=== PATIENT | female | born 1950 | race Caucasian/White ===

== ENCOUNTER 2017-09-09 14:37 | Inpatient (IN) | payer MEDICARE ==
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
[2017-09-09] MEDS ORDERED: IPRATROPIUM/ALBUTEROL 3 ML NEB INH STA (15:38)
[2017-09-09] MEDS ORDERED: CIPROFLOXACIN 250 MG TABLET PO STA (15:39)
[2017-09-09 16:15] LABS: BASOPHILS # (AUTO) 0.2 10^3/uL (0.0-0.1); BASOPHILS % (AUTO) 0.9 %; EOSINOPHILS % (AUTO) 0.1 %; HGB - HEMOGLOBIN 13.1 g/dL (12.0-16.0); LYMPHOCYTES # (AUTO) 0.4 10^3/uL (1.5-3.5); LYMPHOCYTES % (AUTO) 2.4 %; MEAN CORPUSCULAR HEMOGLOBIN 28.5 pg (27.0-31.0); MEAN CORPUSCULAR HGB CONC 32.8 g/dL (32.0-36.0); MEAN CORPUSCULAR VOLUME 86.9 fL (81.0-99.0); MEAN PLATELET VOLUME 7.7 fL (7.9-10.8); MONOCYTES # (AUTO) 1.3 10^3/uL (0.0-1.0); MONOCYTES % (AUTO) 7.2 %; NEUTROPHILS % (AUTO) 89.4 %; PLT - PLATELET COUNT 325 10^3/uL (130-450); RED BLOOD COUNT 4.59 10^6/uL (4.20-5.40); RED CELL DISTRIBUTION WIDTH 14.4 % (12.0-15.0); WHITE BLOOD COUNT 17.8 x10^3/uL (4.8-10.8)
[2017-09-09] MEDS ORDERED: CIPROFLOXACIN 400 MG/200 ML 200 ML IV ONE (16:24)
[2017-09-09 16:31] LABS: ALBUMIN 3.7 g/dL (3.2-5.5); ALBUMIN/GLOBULIN RATIO 0.9 (1.0-2.2); BILIRUBIN,TOTAL 1.4 mg/dL (0.2-1.0); CALCIUM 8.9 mg/dL (8.5-10.3); CREATININE 0.7 mg/dL (0.4-1.0); MAGNESIUM 1.7 mg/dL (1.7-2.8); TOTAL PROTEIN 7.8 g/dL (6.7-8.2)
--- NOTE | 2017-09-09 16:41 | XRAY Report ---
EXAM: CHEST RADIOGRAPHY EXAM DATE: 09/09/2017 04:35 PM. CLINICAL HISTORY: Shortness of breath. Chest pain, left-sided. COMPARISON: None. TECHNIQUE: 2 views. FINDINGS: Lungs/Pleura: Diffuse interstitial and vascular prominence and bronchial thickening present largely i n the mid and lower lungs. Dense left basilar opacity. Small left pleural effusion. No pneumothorax. Mediastinum: Cardiomegaly. Aortic atherosclerosis. Other: Degenerative changes. Dextroscoliosis. Status post cholecystectomy. Surgical clips projected o kenzie the right lung apex and superior mediastinum. IMPRESSION: 1. Diffuse interstitial and vascular prominence and bronchial thickening mid and lower lungs which ma y be infectious in etiology and represent multilobar consolidation or represent edema. 2. Small left pleural effusion. 3. Cardiomegaly. [facility] Referring Provider Line: [phone] SITE ID: [id number]
[2017-09-09] MEDS ORDERED: HYDROmorphone 1 MG/ML SYRINGE IVP STA (18:02)
[2017-09-09] MEDS ORDERED: PROMETHAZINE INJ 25 MG in SODIUM CHLORIDE 0.9% 50 ML IV STA (18:02)
[2017-09-09] MEDS ORDERED: ALBUTEROL NEB 2.5 MG/3 ML INH STA (18:04)
[2017-09-09] MEDS ORDERED: HYDROcod/ACETAM 10 MG/325 MG TABLET PO PRN (18:34)
[2017-09-09] MEDS ORDERED: amLODIPine 5 MG TABLET PO STA (18:36)
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
[2017-09-09] MEDS ORDERED: METOPROLOL SUCCINATE 50 MG TABLET PO SCH (19:00)
[2017-09-09] MEDS ORDERED: levoFLOXacin 750 MG/150 ML 750 MG/150 ML BAG IV SCH (19:00)
[2017-09-09] MEDS ORDERED: PROMETHAZINE 25 MG TABLET PO PRN (20:07)
[2017-09-09] MEDS: SODIUM CHLORIDE FLUSH 0.9% 10 ML SYRINGE IVP PRN (20:34)
[2017-09-09] MEDS: D5.45NS W/20 MEQ KCL 1,000 ML IV SCH (20:34)
[2017-09-09] MEDS ORDERED: PROMETHAZINE 25 MG TABLET PO SCH (21:00)
[2017-09-09] MEDS ORDERED: metFORMIN 500 MG TABLET PO SCH (21:00)
[2017-09-09] MEDS ORDERED: INSULIN ASPART 300 UNIT/3 ML PEN SUBQ SCH (21:00)
[2017-09-09] MEDS ORDERED: HYDROmorphone 1 MG/ML SYRINGE IVP PRN (21:08)
[2017-09-09] MEDS ORDERED: LIDOCAINE VISCOUS 2% 100 ML BOTTLE MM PRN (21:10)
[2017-09-09] MEDS: ACETAMINOPHEN 1,000 MG/100 ML 100 ML IV PRN (21:50)
[2017-09-09] MEDS: cefTRIAXone 2 GM in SODIUM CHLORIDE 0.9% MINIBAG 100 ML IV SCH (21:56)
[2017-09-09] MEDS: IPRATROPIUM/ALBUTEROL 3 ML NEB INH PRN (22:01)
[2017-09-09] MEDS: BUDESONIDE 0.5 MG/2 ML NEB INH SCH (22:01)
[2017-09-09] MEDS: FUROSEMIDE 20 MG/2 ML VIAL IVP SCH (22:10)
[2017-09-09] MEDS ORDERED: diazePAM INJ 5 MG/ML SYRINGE IVP PRN (22:24)
[2017-09-09] MEDS ORDERED: PROMETHAZINE 25 MG/1 ML VIAL ONE (22:48)
[2017-09-09] MEDS: PANTOPRAZOLE 40 MG VIAL IVP SCH (23:00)
[2017-09-09] MEDS: HYDROmorphone 1 MG/ML SYRINGE IVP PRN (23:00)
[2017-09-09] MEDS: SODIUM CHLORIDE FLUSH 0.9% 10 ML SYRINGE IVP SCH (23:01)
[2017-09-09] MEDS: PROMETHAZINE INJ 25 MG in SODIUM CHLORIDE 0.9% 50 ML IV PRN (23:03)
[2017-09-09] MEDS ORDERED: SODIUM CHLORIDE 0.9% MINIBAG 100 ML IV ONE (23:09)
[2017-09-09] MEDS: METOPROLOL 5 MG/5 ML VIAL IVP SCH (23:24)
[2017-09-10] MEDS: INSULIN REGULAR HUMAN 100 UNIT/1 ML 10 ML MDV SUBQ SCH ×4 (00:34→18:01)
[2017-09-10] MEDS: METOPROLOL 5 MG/5 ML VIAL IVP SCH ×5 (00:38→23:57)
[2017-09-10] MEDS: AZITHROMYCIN INJ 500 MG in SODIUM CHLORIDE 0.9% 250 ML IV SCH ×2 (00:40→22:23)
[2017-09-10] MEDS ORDERED: PROMETHAZINE 25 MG/1 ML VIAL ONE (05:19)
[2017-09-10] MEDS: PROMETHAZINE INJ 25 MG in SODIUM CHLORIDE 0.9% 50 ML IV PRN ×3 (05:22→17:53)
[2017-09-10] MEDS ORDERED: SODIUM CHLORIDE INHALATION 3 ML NEB ONE ×4 (05:28→19:10)
[2017-09-10] MEDS: HYDROmorphone 1 MG/ML SYRINGE IVP PRN ×3 (05:28→17:54)
[2017-09-10] MEDS: PANTOPRAZOLE 40 MG VIAL IVP SCH (06:46)
[2017-09-10] MEDS: SODIUM CHLORIDE FLUSH 0.9% 10 ML SYRINGE IVP PRN ×3 (06:47→19:10)
[2017-09-10] MEDS: BUDESONIDE 0.5 MG/2 ML NEB INH SCH ×2 (07:20→19:53)
[2017-09-10] MEDS: IPRATROPIUM/ALBUTEROL 3 ML NEB INH PRN ×3 (07:20→19:53)
[2017-09-10] MEDS: FUROSEMIDE 20 MG/2 ML VIAL IVP SCH (08:23)
[2017-09-10] MEDS: amLODIPine 5 MG TABLET PO SCH (08:23)
[2017-09-10] MEDS: SODIUM CHLORIDE FLUSH 0.9% 10 ML SYRINGE IVP SCH ×3 (08:24→23:58)
[2017-09-10] MEDS ORDERED: POLYETHYLENE GLYCOL 3350 17 GM PACKET PO SCH (09:00)
[2017-09-10] MEDS ORDERED: FUROSEMIDE 20 MG TABLET PO SCH (09:00)
[2017-09-10] MEDS ORDERED: PANTOPRAZOLE 40 MG TABLET PO SCH (09:00)
[2017-09-10 09:22] LABS: CALCIUM 8.3 mg/dL (8.5-10.3); CREATININE 0.7 mg/dL (0.4-1.0)
[2017-09-10 09:33] LABS: HGB - HEMOGLOBIN 12.5 g/dL (12.0-16.0); MEAN CORPUSCULAR HGB CONC 32.9 g/dL (32.0-36.0); MEAN CORPUSCULAR VOLUME 88.1 fL (81.0-99.0); MEAN PLATELET VOLUME 8.1 fL (7.9-10.8); RED BLOOD COUNT 4.29 10^6/uL (4.20-5.40); RED CELL DISTRIBUTION WIDTH 14.6 % (12.0-15.0); WHITE BLOOD COUNT 15.9 x10^3/uL (4.8-10.8)
[2017-09-10] MEDS: D5.45NS W/20 MEQ KCL 1,000 ML IV SCH ×2 (10:49→20:07)
[2017-09-10] MEDS ORDERED: SODIUM CHLORIDE INHALATION 3 ML NEB INH PRN (12:29)
--- NOTE | 2017-09-10 14:36 | PROVIDER PROGRESS NOTE ---
Subjective - Prog Note Date Prog Note Date: 09/10/17 Prog Note Time: 14:15 - Subjective Pt reports feeling: Improved (The patient says that she is feeling a little bit easier to breathe. She denies any new problems. She says she slept fairly well last night. She is eating and has not yet moved her bowels since she has been hospitalized. She denies any significant shortness of breath but does have a nonproductive cough.) Current Medications - Current Medications Current Medications: Amlodipine, [place] azithromycin, Pulmicort, ceftriaxone, D5 one half normal saline , diazepam, furosemide, hydromorphone, insulin, DuoNeb, viscous lidocaine, metoprolol, acetaminophen, Protonix, Phenergan, Sodium chloride. Objective - Vital Signs/Intake & Output Reviewed Vital Signs: Yes Vital Signs: Vital Signs x48h Temp Pulse Pulse Resp BP BP Pulse Ox 09/10/17 13:34 141/46 H 09/10/17 13:27 38.6 C H 109 H 141/46 H 87 L 09/10/17 11:21 88 20 09/10/17 09:02 36.8 C 93 16 156/65 H 93 09/10/17 07:50 115 H 191/69 H 09/10/17 07:35 103 H 133/94 H 09/10/17 07:23 90 20 09/10/17 07:20 94 160/69 H 09/10/17 07:05 87 136/57 H 09/10/17 07:00 86 146/65 H 09/10/17 06:57 88 145/63 H 09/10/17 06:50 153/76 H Intake & Output: Intake & Output 09/07/17 09/08/17 09/09/17 09/10/17 23:59 23:59 23:59 23:59 Intake Total 251 1503.000 Output Total 50 Balance 251 1453.000 - Objective General Appearance: positive: No acute distress, Alert Eyes Bilateral: positive: Normal inspection, PERRL, EOMI, No lid inflammation, Conjunctivae nml ENT: positive: Other (s/p tracheostomy) Neck: positive: Nml inspection, No JVD, Trachea midline. negative: Thyroid nml , Thyromegaly Respiratory: positive: Chest non-tender, No respiratory distress, Breath sounds nml, Rhonchi. negative: Wheezes, Rales Cardiovascular: positive: Regular rate & rhythm, No murmur, No gallop Abdomen: positive: Non-tender, No organomegaly, Nml bowel sounds, No distention. negative: Guarding, Rebound Back: positive: Nml inspection. negative: CVA tenderness (R), CVA tenderness (L ) Skin: positive: Color nml, No rash, Warm, Dry. negative: Cyanosis Extremities: positive: Non-tender, Full ROM, Nml appearance, No pedal edema Neurologic/Psychiatric: positive: Oriented x3, CN's nml (2-12), Motor nml, Sensation nml, Mood/affect nml - Lab Results Fish Bones: 09/10/17 08:47 09/10/17 08:47 Other Labs: Lab Results x24hrs 09/10/17 09/10/17 09/10/17 Range/Units 11:44 08:47 08:47 WBC 15.9 H (4.8-10.8) x10^3/uL RBC 4.29 (4.20-5.40) 10^6/uL Hgb 12.5 (12.0-16.0) g/dL Hct 37.8 (37.0-47.0) % MCV 88.1 (81.0-99.0) fL MCH 29.0 (27.0-31.0) pg MCHC 32.9 (32.0-36.0) g/dL RDW 14.6 (12.0-15.0) % Plt Count 289 (130-450) 10^3/uL MPV 8.1 (7.9-10.8) fL Sodium 138 (135-145) mmol/L Potassium 3.4 L (3.5-5.0) mmol/L Chloride 100 L (101-111) mmol/L Carbon Dioxide 27 (21-32) mmol/L Anion Gap 11.0 (6-13) BUN 17 (6-20) mg/dL Creatinine 0.7 (0.4-1.0) mg/dL Estimated GFR (MDRD) 83 L (>89) Glucose 194 H (70-100) mg/dL POC Whole Bld Glucose 210 H (70 - 100) mg/dL Calcium 8.3 L (8.5-10.3) mg/dL 09/10/17 09/10/17 Range/Units 05:40 00:26 WBC (4.8-10.8) x10^3/uL RBC (4.20-5.40) 10^6/uL Hgb (12.0-16.0) g/dL Hct (37.0-47.0) % MCV (81.0-99.0) fL MCH (27.0-31.0) pg MCHC (32.0-36.0) g/dL RDW (12.0-15.0) % Plt Count (130-450) 10^3/uL MPV (7.9-10.8) fL Sodium (135-145) mmol/L Potassium (3.5-5.0) mmol/L Chloride (101-111) mmol/L Carbon Dioxide (21-32) mmol/L Anion Gap (6-13) BUN (6-20) mg/dL Creatinine (0.4-1.0) mg/dL Estimated GFR (MDRD) (>89) Glucose (70-100) mg/dL POC Whole Bld Glucose 148 H 157 H (70 - 100) mg/dL Calcium (8.5-10.3) mg/dL - Diagnostic Imaging Diagnostic Imaging Results: positive: Final report reviewed Diagnostic Imaging Comments: EXAM: CHEST RADIOGRAPHY EXAM DATE: 09/09/2017 04:35 PM. CLINICAL HISTORY: Shortness of breath. Chest pain, left-sided. COMPARISON: None. TECHNIQUE: 2 views. FINDINGS: Lungs/Pleura: Diffuse interstitial and vascular prominence and bronchial thickening present largely in the mid and lower lungs. Dense left basilar opacity. Small left pleural effusion. No pneumothorax. Mediastinum: Cardiomegaly. Aortic atherosclerosis. Other: Degenerative changes. Dextroscoliosis. Status post cholecystectomy. Surgical clips projected over the right lung apex and superior mediastinum. IMPRESSION: 1. Diffuse interstitial and vascular prominence and bronchial thickening mid and lower lungs which may be infectious in etiology and represent multilobar consolidation or represent edema. 2. Small left pleural effusion. 3. Cardiomegaly Assessment/Plan - Problem List (1) Pneumonia Impression: Community-acquired, the patient is on ceftriaxone and azithromycin. Due to her previous living conditions there is certainly a high risk that the patient may have some sort of mold infection in her lungs as well. The patient will continue on her supplemental oxygen and bronchodilators as necessary. Qualifiers: Pneumonia type: due to unspecified organism Laterality: right Lung location: lower lobe of lung Qualified Code(s): J18.1 - Lobar pneumonia, unspecified organism (2) Acute exacerbation of COPD with asthma Impression: This exacerbation was likely triggered by the pneumonia. We will continue to treat the underlying pneumonia and give her bronchodilators and steroids to help with the COPD exacerbation. (3) HTN (hypertension) Impression: Controlled. Continue metoprolol, amlodipine, and Lasix. (4) Anxiety Impression: Controlled, continue home medications. (5) Type 2 diabetes mellitus Impression: The patient is on diabetic diet. We will continue with metformin and sliding scale insulin coverage.
[2017-09-10] MEDS: ACETAMINOPHEN 1,000 MG/100 ML 100 ML IV PRN (18:50)
[2017-09-10] MEDS: cefTRIAXone 2 GM in SODIUM CHLORIDE 0.9% MINIBAG 100 ML IV SCH (21:47)
[2017-09-11] MEDS: HYDROmorphone 1 MG/ML SYRINGE IVP PRN ×4 (00:43→18:30)
[2017-09-11] MEDS: PROMETHAZINE INJ 25 MG in SODIUM CHLORIDE 0.9% 50 ML IV PRN ×4 (00:50→20:11)
[2017-09-11] MEDS: SODIUM CHLORIDE FLUSH 0.9% 10 ML SYRINGE IVP PRN ×3 (00:50→08:12)
[2017-09-11] MEDS: INSULIN REGULAR HUMAN 100 UNIT/1 ML 10 ML MDV SUBQ SCH ×2 (00:57→06:36)
[2017-09-11 06:04] LABS: HGB - HEMOGLOBIN 11.7 g/dL (12.0-16.0); MEAN CORPUSCULAR HEMOGLOBIN 28.4 pg (27.0-31.0); MEAN CORPUSCULAR HGB CONC 32.3 g/dL (32.0-36.0); MEAN CORPUSCULAR VOLUME 87.7 fL (81.0-99.0); RED BLOOD COUNT 4.13 10^6/uL (4.20-5.40); RED CELL DISTRIBUTION WIDTH 14.2 % (12.0-15.0); WHITE BLOOD COUNT 11.7 x10^3/uL (4.8-10.8)
[2017-09-11 06:21] LABS: CREATININE 0.7 mg/dL (0.4-1.0)
[2017-09-11] MEDS: METOPROLOL 5 MG/5 ML VIAL IVP SCH (06:24)
[2017-09-11] MEDS: PANTOPRAZOLE 40 MG VIAL IVP SCH (07:12)
[2017-09-11] MEDS: BUDESONIDE 0.5 MG/2 ML NEB INH SCH ×2 (08:00→21:12)
[2017-09-11] MEDS: IPRATROPIUM/ALBUTEROL 3 ML NEB INH PRN ×2 (08:00→21:13)
[2017-09-11] MEDS: D5.45NS W/20 MEQ KCL 1,000 ML IV SCH ×3 (08:11→21:54)
--- NOTE | 2017-09-11 09:58 | XRAY Report ---
FRONTAL CHEST: 09/11/2017 CLINICAL INDICATION: Pneumonia, worsening shortness of breath. COMPARISON: 09/09/2016. FINDINGS: Frontal view of the chest demonstrates interval increase in left-sided infiltrates. Trace left effusion is present. No pneumothorax. IMPRESSION: INTERVAL INCREASE IN LEFT-SIDED INFILTRATES. TD: 09/11/2017 09:57
[2017-09-11] MEDS: SODIUM CHLORIDE FLUSH 0.9% 10 ML SYRINGE IVP SCH ×2 (11:29→17:10)
[2017-09-11] MEDS: amLODIPine 5 MG TABLET PO SCH (11:29)
[2017-09-11] MEDS: FUROSEMIDE 20 MG/2 ML VIAL IVP SCH (11:29)
[2017-09-11] MEDS: INSULIN ASPART 300 UNIT/3 ML PEN SUBQ SCH ×3 (12:18→21:55)
[2017-09-11 12:27] LABS: HB2 TOTAL 13.1 g/dL; HEMOGLOBIN A1C 0.64 g/dL; HEMOGLOBIN A1C % 6.6 % (4.6-6.2)
--- NOTE | 2017-09-11 14:33 | PROVIDER PROGRESS NOTE ---
Subjective - Prog Note Date Prog Note Date: 09/11/17 Prog Note Time: 11:30 - Subjective Pt reports feeling: No change (Pt still with SOB and chronic pain.) Objective - Vital Signs/Intake & Output Vital Signs: Vital Signs x48h Temp Pulse Pulse Resp BP Pulse Ox 09/11/17 14:23 36.9 C 105 H 18 173/71 H 96 09/11/17 08:00 37.2 C 88 90 20 164/66 H 91 L 09/11/17 06:55 88 161/64 H 09/11/17 06:50 90 158/86 H 09/11/17 06:45 95 165/83 H Intake & Output: Intake & Output 09/08/17 09/09/17 09/10/17 09/11/17 23:59 23:59 23:59 23:59 Intake Total 251 2934.000 1184.667 Output Total 75 1350 Balance 251 2859.000 -165.333 - Lab Results Fish Bones: 09/11/17 05:47 09/11/17 05:47 Other Labs: Lab Results x24hrs 09/11/17 09/11/17 09/11/17 Range/Units 11:32 06:06 05:47 WBC (4.8-10.8) x10^3/uL RBC (4.20-5.40) 10^6/uL Hgb (12.0-16.0) g/dL Hct (37.0-47.0) % MCV (81.0-99.0) fL MCH (27.0-31.0) pg MCHC (32.0-36.0) g/dL RDW (12.0-15.0) % Plt Count (130-450) 10^3/uL MPV (7.9-10.8) fL Sodium (135-145) mmol/L Potassium (3.5-5.0) mmol/L Chloride (101-111) mmol/L Carbon Dioxide (21-32) mmol/L Anion Gap (6-13) BUN (6-20) mg/dL Creatinine (0.4-1.0) mg/dL Estimated GFR (MDRD) (>89) Glucose (70-100) mg/dL POC Whole Bld Glucose 125 H 146 H (70 - 100) mg/dL Glycated Hemoglobin 6.6 H (4.6-6.2) % Estim Average Glucose 143 H (70-100) Calcium (8.5-10.3) mg/dL 09/11/17 09/11/17 09/10/17 Range/Units 05:47 05:47 23:51 WBC 11.7 H (4.8-10.8) x10^3/uL RBC 4.13 L (4.20-5.40) 10^6/uL Hgb 11.7 L (12.0-16.0) g/dL Hct 36.2 L (37.0-47.0) % MCV 87.7 (81.0-99.0) fL MCH 28.4 (27.0-31.0) pg MCHC 32.3 (32.0-36.0) g/dL RDW 14.2 (12.0-15.0) % Plt Count 269 (130-450) 10^3/uL MPV 8.0 (7.9-10.8) fL Sodium 138 (135-145) mmol/L Potassium 3.6 (3.5-5.0) mmol/L Chloride 104 (101-111) mmol/L Carbon Dioxide 26 (21-32) mmol/L Anion Gap 8.0 (6-13) BUN 12 (6-20) mg/dL Creatinine 0.7 (0.4-1.0) mg/dL Estimated GFR (MDRD) 83 L (>89) Glucose 161 H (70-100) mg/dL POC Whole Bld Glucose 116 H (70 - 100) mg/dL Glycated Hemoglobin (4.6-6.2) % Estim Average Glucose (70-100) Calcium 8.0 L (8.5-10.3) mg/dL 09/10/17 Range/Units 17:26 WBC (4.8-10.8) x10^3/uL RBC (4.20-5.40) 10^6/uL Hgb (12.0-16.0) g/dL Hct (37.0-47.0) % MCV (81.0-99.0) fL MCH (27.0-31.0) pg MCHC (32.0-36.0) g/dL RDW (12.0-15.0) % Plt Count (130-450) 10^3/uL MPV (7.9-10.8) fL Sodium (135-145) mmol/L Potassium (3.5-5.0) mmol/L Chloride (101-111) mmol/L Carbon Dioxide (21-32) mmol/L Anion Gap (6-13) BUN (6-20) mg/dL Creatinine (0.4-1.0) mg/dL Estimated GFR (MDRD) (>89) Glucose (70-100) mg/dL POC Whole Bld Glucose 168 H (70 - 100) mg/dL Glycated Hemoglobin (4.6-6.2) % Estim Average Glucose (70-100) Calcium (8.5-10.3) mg/dL Assessment/Plan - Problem List (1) Pneumonia Impression: Worsening infiltrates on the left, pt still with respiratory compromise. WBCs trending downwards rapidly. Continue rocephin and azithromycin, bronchodilators and supplemental oxygen. Qualifiers: Pneumonia type: due to unspecified organism Laterality: left Lung location: lower lobe of lung Qualified Code(s): J18.1 - Lobar pneumonia, unspecified organism (2) Acute exacerbation of COPD with asthma Impression: No doubt due to the underlying pneumonia. Continue with nebulizer treatments, bronchodilators, supplemental oxygen, and steroids. (3) HTN (hypertension) Impression: Patient is already on amlodipine metoprolol and Lasix. Blood pressure still elevated. We will add hydrochlorothiazide and lisinopril. (4) Anxiety Impression: Continue PRN diazepam. (5) Type 2 diabetes mellitus Impression: Continue with diabetic diet, home medications, and sliding scale coverage. (6) Chronic pain Impression: Patient complains of chronic pain to her jaw, shoulders, hips, and lower back. She has been taking hydrocodone/acetaminophen 4 times a day for years. She still complains of pain that is severe. I will add low-dose methadone.
[2017-09-11] MEDS: LISINOPRIL 20 MG TABLET PO SCH (16:12)
[2017-09-11] MEDS: METHADONE 5 MG TABLET PO SCH ×2 (16:12→21:51)
[2017-09-11] MEDS: hydroCHLOROthiazide 25 MG TABLET PO SCH (16:13)
[2017-09-11] MEDS ORDERED: SODIUM CHLORIDE INHALATION 3 ML NEB ONE (16:43)
[2017-09-11] MEDS: ACETAMINOPHEN 1,000 MG/100 ML 100 ML IV PRN (18:30)
[2017-09-11] MEDS: AZITHROMYCIN INJ 500 MG in SODIUM CHLORIDE 0.9% 250 ML IV SCH (21:49)
[2017-09-11] MEDS: cefTRIAXone 2 GM in SODIUM CHLORIDE 0.9% MINIBAG 100 ML IV SCH (21:49)
[2017-09-12] MEDS: HYDROmorphone 1 MG/ML SYRINGE IVP PRN ×4 (02:09→19:54)
[2017-09-12] MEDS: PROMETHAZINE INJ 25 MG in SODIUM CHLORIDE 0.9% 50 ML IV PRN ×4 (02:12→19:58)
[2017-09-12] MEDS ORDERED: MAG HYDROX/AL HYDROX/SIMETH 30 ML UDC PO PRN (02:40)
[2017-09-12] MEDS: SODIUM CHLORIDE FLUSH 0.9% 10 ML SYRINGE IVP SCH ×4 (02:53→23:46)
[2017-09-12] MEDS: METHADONE 5 MG TABLET PO SCH ×3 (05:53→21:07)
[2017-09-12] MEDS: SODIUM CHLORIDE FLUSH 0.9% 10 ML SYRINGE IVP PRN (06:03)
[2017-09-12] MEDS: PANTOPRAZOLE 40 MG VIAL IVP SCH (06:03)
[2017-09-12 06:12] LABS: HGB - HEMOGLOBIN 11.4 g/dL (12.0-16.0); MEAN CORPUSCULAR HGB CONC 33.1 g/dL (32.0-36.0); MEAN CORPUSCULAR VOLUME 87.5 fL (81.0-99.0); MEAN PLATELET VOLUME 7.9 fL (7.9-10.8); RED BLOOD COUNT 3.93 10^6/uL (4.20-5.40); RED CELL DISTRIBUTION WIDTH 14.1 % (12.0-15.0); WHITE BLOOD COUNT 7.1 x10^3/uL (4.8-10.8)
[2017-09-12 06:13] LABS: CREATININE 0.6 mg/dL (0.4-1.0)
[2017-09-12] MEDS: D5.45NS W/20 MEQ KCL 1,000 ML IV SCH ×2 (08:13→14:31)
[2017-09-12] MEDS: FUROSEMIDE 20 MG/2 ML VIAL IVP SCH (08:14)
[2017-09-12] MEDS: ACETAMINOPHEN 1,000 MG/100 ML 100 ML IV PRN ×2 (08:16→19:36)
[2017-09-12] MEDS: INSULIN ASPART 300 UNIT/3 ML PEN SUBQ SCH ×4 (08:21→20:48)
[2017-09-12] MEDS: LISINOPRIL 20 MG TABLET PO SCH (08:38)
[2017-09-12] MEDS: amLODIPine 5 MG TABLET PO SCH (08:38)
[2017-09-12] MEDS: hydroCHLOROthiazide 25 MG TABLET PO SCH (08:38)
[2017-09-12] MEDS: METOPROLOL TARTRATE 25 MG TABLET PO SCH ×2 (08:39→21:04)
[2017-09-12] MEDS ORDERED: METOPROLOL SUCCINATE 50 MG TABLET PO SCH (09:00)
[2017-09-12] MEDS: BUDESONIDE 0.5 MG/2 ML NEB INH SCH ×2 (11:00→22:20)
[2017-09-12] MEDS: IPRATROPIUM/ALBUTEROL 3 ML NEB INH PRN (11:00)
--- NOTE | 2017-09-12 13:52 | PROVIDER PROGRESS NOTE ---
Assessment/Plan - Problem List (1) Pneumonia Qualifiers: Pneumonia type: due to unspecified organism Laterality: left Lung location: lower lobe of lung Qualified Code(s): J18.1 - Lobar pneumonia, unspecified organism Assessment/Plan: Pt states she is less SOB and is coughing less. Continue iv antibiotics. (2) Acute exacerbation of COPD with asthma Assessment/Plan: No wheezing or rhonchi. Will continue present nebs and treatment. (3) Tracheostomy dependent Assessment/Plan: I spoke to Dr Renetta Sahu, General Surgery, to address if Pt needs a bronch and to assist with the issue of the broken Trach. The ER notes do state what type of Trach the patient has and what was done up until today. We do not have a bronchoscope here and he does not insert the Joey (speaking type) of Trachs. Continue with current apparatus, as she is improving clinically, and she will need ENT to help with this after DCh. (4) HTN (hypertension) Assessment/Plan: Stable on current meds (5) Type 2 diabetes mellitus Assessment/Plan: Continue with DM diet and Insulin coverage. (6) Anxiety Assessment/Plan: Continue current meds. (7) Chronic pain Assessment/Plan: Continue with new Methadone, added to narcotics prn. (8) Hypokalemia Assessment/Plan: Possibly from loop diuretic. Will replace K and follow labs. - Current Meds Current Meds: Current Medications Generic Name Dose Route Start Last Admin Trade Name Freq PRN Reason Stop Dose Admin Albuterol/Ipratropium 3 ml 09/09/17 19:15 09/12/17 11:00 Duoneb INH 3 ml Q4HR PRN Administration Wheezing Amlodipine Besylate 5 mg 09/10/17 09:00 09/12/17 08:38 Norvasc PO 5 mg DAILY DARLENE Administration Budesonide 0.5 mg 09/09/17 20:00 09/12/17 11:00 Pulmicort INH 0.5 mg RTBID DARLENE Administration Furosemide 20 mg 09/09/17 22:00 09/12/17 08:14 Lasix Inj 20mg Vial IVP 20 mg DAILY DARLENE Administration Hydrochlorothiazide 25 mg 09/11/17 15:00 09/12/17 08:38 Hydrodiuril PO 25 mg DAILY DARLENE Administration Hydromorphone HCl 0.5 mg 09/09/17 22:25 09/12/17 08:14 Dilaudid Inj Syringe IVP 0.5 mg Q6H PRN Administration SEVERE PAIN Potassium Chloride/Dextrose/Sod Cl 1,000 mls @ 100 mls/hr 09/09/17 19:00 09:06 D5.45ns W/20 Meq Kcl IV 100 mls/hr .Q10H DARLENE Infusion Azithromycin 500 mg/ Sodium 250 mls @ 250 mls/hr 09/09/17 22:00 09/11/17 22: 54 Chloride IV Infused Q24H DARLENE Infusion Ceftriaxone Sodium 2 gm/ 100 mls @ 200 mls/hr 09/09/17 22:00 09/11/17 22:20 Sodium Chloride IV Infused Q24H DARLENE Infusion Acetaminophen 100 mls @ 400 mls/hr 09/09/17 21:10 09/12/17 08:35 Ofirmev IV Infused Q6HR PRN Infusion PAIN Promethazine HCl 25 mg/ Sodium 51 mls @ 100 mls/hr 09/09/17 22:22 09/12/17 09 :06 Chloride IV Infused Q6H PRN Infusion Nausea / Vomiting Insulin Aspart 3 - 11 unit 09/12/17 12:00 09/12/17 12:08 Novolog SUBQ 3 unit 0800,1200,1700,2100 DARLENE Administration Protocol Lisinopril 20 mg 09/11/17 15:00 09/12/17 08:38 Zestril PO 20 mg DAILY DARLENE Administration Methadone HCl 2.5 mg 09/11/17 15:00 09/12/17 05:53 PO 2.5 mg TID DARLENE Administration Metoprolol Tartrate 25 mg 09/12/17 09:00 09/12/17 08:39 Lopressor PO 25 mg BID DARLENE Administration Pantoprazole Sodium 40 mg 09/09/17 22:00 09/12/17 06:03 Protonix IVP 40 mg QDAC DARLENE Administration Sodium Chloride 10 ml 09/09/17 18:28 09/12/17 06:03 Normal Saline Flush 0.9% IVP 10 ml PRN PRN Administration NEEDED PER PROVIDER ORDERS Sodium Chloride 10 ml 09/10/17 01:00 09/12/17 08:38 Normal Saline Flush 0.9% IVP Not Given 0100,0900,1700 DARLENE - Lab Result Fish Bone Diagrams: 09/12/17 05:35 09/12/17 05:35 - Additional Planning My Orders: My Active Orders 09/12/17 Consult [General Surgery Consult] [CONS] Routine 09/12/17 09:00 Metoprolol Tartrate [Lopressor] 25 mg PO BID 09/12/17 Lunch Soft Mechanical Diet [DIET] Subjective - Subjective Patient Reports: Feeling Better Nursing Reports: Other (Has pain in neck, shoulders and chest, narcotocs with Methadone do help.) Objective Vital Signs: Vital Signs - 24 hr 09/11/17 09/11/17 09/12/17 14:23 16:53 01:30 Temperature 36.9 C 37 C 36.7 C Heart Rate Heart Rate [ 105 H 113 H 98 Brachial] Respiratory 18 20 18 Rate Blood Pressure 158/76 H [Left Brachial artery] Blood Pressure 173/71 H 147/79 H [Right Brachial artery] O2 Saturation 96 94 98 09/12/17 09/12/17 08:00 11:00 Temperature 36.7 C Heart Rate 71 Heart Rate [ 87 Brachial] Respiratory 16 20 Rate Blood Pressure 135/66 H [Left Brachial artery] Blood Pressure [Right Brachial artery] O2 Saturation 91 L Oxygen O2 Source High flow nasal cannula I&O (Last 24 Hrs): Intake and Output Totals x24h 09/10/17 09/11/17 09/12/17 23:59 23:59 23:59 Intake Total 2934.000 2744.000 1335.333 Output Total 75 1950 2300 Balance 2859.000 794.000 -964.667 General: Alert HEENT: Mucous membr. moist/pink Neck: Other (Trach in neck and S/P extensive neck surgery.) Neuro: Non Focal Cardiovascular: No murmurs Respiratory: Other Extremities: Other (1+ edema) - Results Results: Laboratory Results WBC 7.1 x10^3/uL (4.8-10.8) 09/12/17 05:35 RBC 3.93 10^6/uL (4.20-5.40) L 09/12/17 05:35 Hgb 11.4 g/dL (12.0-16.0) L 09/12/17 05:35 Hct 34.4 % (37.0-47.0) L 09/12/17 05:35 MCV 87.5 fL (81.0-99.0) 09/12/17 05:35 MCH 29.0 pg (27.0-31.0) 09/12/17 05:35 MCHC 33.1 g/dL (32.0-36.0) 09/12/17 05:35 RDW 14.1 % (12.0-15.0) 09/12/17 05:35 Plt Count 310 10^3/uL (130-450) 09/12/17 05:35 MPV 7.9 fL (7.9-10.8) 09/12/17 05:35 Neut # 16.0 10^3/uL (1.5-6.6) H 09/09/17 16:00 Lymph # 0.4 10^3/uL (1.5-3.5) L 09/09/17 16:00 Grainger # 1.3 10^3/uL (0.0-1.0) H 09/09/17 16:00 Eos # 0.0 10^3/uL (0.0-0.7) 09/09/17 16:00 Baso # 0.2 10^3/uL (0.0-0.1) H 09/09/17 16:00 Absolute Nucleated RBC 0.00 x10^3/uL 09/09/17 16:00 Nucleated RBC % 0.0 /100WBC 09/09/17 16:00 Sodium 137 mmol/L (135-145) 09/12/17 05:35 Potassium 3.2 mmol/L (3.5-5.0) L 09/12/17 05:35 Chloride 100 mmol/L (101-111) L 09/12/17 05:35 Carbon Dioxide 26 mmol/L (21-32) 09/12/17 05:35 Anion Gap 11.0 (6-13) 09/12/17 05:35 BUN 8 mg/dL (6-20) 09/12/17 05:35 Creatinine 0.6 mg/dL (0.4-1.0) 09/12/17 05:35 Estimated GFR (MDRD) 99 (>89) 09/12/17 05:35 Glucose 161 mg/dL (70-100) H 09/12/17 05:35 POC Whole Bld Glucose 157 mg/dL (70 - 100) H 09/12/17 11:36 Glycated Hemoglobin 6.6 % (4.6-6.2) H 09/11/17 05:47 Estim Average Glucose 143 (70-100) H 09/11/17 05:47 Calcium 8.0 mg/dL (8.5-10.3) L 09/12/17 05:35 Magnesium 1.7 mg/dL (1.7-2.8) 09/09/17 16:00 Total Bilirubin 1.4 mg/dL (0.2-1.0) H 09/09/17 16:00 AST 21 IU/L (10-42) 09/09/17 16:00 ALT 14 IU/L (10-60) 09/09/17 16:00 Alkaline Phosphatase 61 IU/L (42-121) 09/09/17 16:00 B-Natriuretic Peptide 97 pg/mL (5-100) 09/09/17 16:00 Total Protein 7.8 g/dL (6.7-8.2) 09/09/17 16:00 Albumin 3.7 g/dL (3.2-5.5) 09/09/17 16:00 Globulin 4.1 g/dL (2.1-4.2) 09/09/17 16:00 Albumin/Globulin Ratio 0.9 (1.0-2.2) L 09/09/17 16:00 Lipase 10 U/L (22-51) L 09/09/17 16:00
[2017-09-12] MEDS ORDERED: POTASSIUM CHLORIDE 20 MEQ TABLET PO ONE (14:19)
[2017-09-12] MEDS: cefTRIAXone 2 GM in SODIUM CHLORIDE 0.9% MINIBAG 100 ML IV SCH (21:08)
[2017-09-12] MEDS: AZITHROMYCIN INJ 500 MG in SODIUM CHLORIDE 0.9% 250 ML IV SCH (21:08)
[2017-09-12] MEDS ORDERED: SODIUM CHLORIDE INHALATION 3 ML NEB ONE (21:20)
[2017-09-13] MEDS: HYDROmorphone 1 MG/ML SYRINGE IVP PRN ×4 (02:06→22:49)
[2017-09-13] MEDS: SODIUM CHLORIDE FLUSH 0.9% 10 ML SYRINGE IVP SCH ×2 (02:07→21:15)
[2017-09-13] MEDS: ACETAMINOPHEN 1,000 MG/100 ML 100 ML IV PRN ×2 (02:17→09:20)
[2017-09-13] MEDS: PROMETHAZINE INJ 25 MG in SODIUM CHLORIDE 0.9% 50 ML IV PRN ×2 (03:19→10:26)
[2017-09-13] MEDS: D5.45NS W/20 MEQ KCL 1,000 ML IV SCH (03:31)
[2017-09-13 05:47] LABS: CALCIUM 8.5 mg/dL (8.5-10.3); CREATININE 0.6 mg/dL (0.4-1.0)
[2017-09-13 05:51] LABS: HGB - HEMOGLOBIN 11.9 g/dL (12.0-16.0); MEAN CORPUSCULAR HEMOGLOBIN 28.8 pg (27.0-31.0); MEAN CORPUSCULAR HGB CONC 32.6 g/dL (32.0-36.0); MEAN CORPUSCULAR VOLUME 88.3 fL (81.0-99.0); MEAN PLATELET VOLUME 7.7 fL (7.9-10.8); RED BLOOD COUNT 4.12 10^6/uL (4.20-5.40); RED CELL DISTRIBUTION WIDTH 14.2 % (12.0-15.0); WHITE BLOOD COUNT 4.6 x10^3/uL (4.8-10.8)
[2017-09-13] MEDS: METHADONE 5 MG TABLET PO SCH ×3 (06:17→21:22)
[2017-09-13] MEDS: PANTOPRAZOLE 40 MG VIAL IVP SCH (06:28)
[2017-09-13] MEDS: SODIUM CHLORIDE FLUSH 0.9% 10 ML SYRINGE IVP PRN (06:28)
[2017-09-13] MEDS: IPRATROPIUM/ALBUTEROL 3 ML NEB INH PRN ×2 (08:00→19:49)
[2017-09-13] MEDS: BUDESONIDE 0.5 MG/2 ML NEB INH SCH ×2 (08:00→19:49)
[2017-09-13] MEDS: INSULIN ASPART 300 UNIT/3 ML PEN SUBQ SCH ×4 (09:00→21:15)
[2017-09-13] MEDS: METOPROLOL TARTRATE 25 MG TABLET PO SCH ×2 (09:09→21:22)
[2017-09-13] MEDS: amLODIPine 5 MG TABLET PO SCH (09:09)
[2017-09-13] MEDS: hydroCHLOROthiazide 25 MG TABLET PO SCH (09:09)
[2017-09-13] MEDS: LISINOPRIL 20 MG TABLET PO SCH (09:10)
[2017-09-13] MEDS: CELECOXIB 100 MG CAPSULE PO SCH (12:11)
[2017-09-13] MEDS: FERROUS GLUCONATE 324 MG TABLET PO SCH (12:11)
[2017-09-13] MEDS: ASPIRIN EC 81 MG TABLET PO SCH (12:11)
[2017-09-13] MEDS: PROMETHAZINE 25 MG TABLET PO PRN ×2 (15:58→22:49)
--- NOTE | 2017-09-13 16:06 | PROVIDER PROGRESS NOTE ---
Assessment/Plan - Problem List (1) Pneumonia Qualifiers: Pneumonia type: due to unspecified organism Laterality: left Lung location: lower lobe of lung Qualified Code(s): J18.1 - Lobar pneumonia, unspecified organism Assessment/Plan: Pt improving clinically on iv antibiotics and nebs Probable discharge tomorrow, home with daughter (2) Acute exacerbation of COPD with asthma Assessment/Plan: Improving on nebs and steroids. Continue present care. (3) Tracheostomy dependent Assessment/Plan: Pt will need an ENT (outpatient) for management of longstanding trach, which is currently cracked and our Gen Surgeon does not replace this kind. (4) HTN (hypertension) Assessment/Plan: Stable on current meds. (5) Type 2 diabetes mellitus Assessment/Plan: Stable with current diet and Insulin coverage. (6) Anxiety Assessment/Plan: Stable on current treatment. (7) Chronic pain Assessment/Plan: No further complaints. - Current Meds Current Meds: Current Medications Generic Name Dose Route Start Last Admin Trade Name Freq PRN Reason Stop Dose Admin Albuterol/Ipratropium 3 ml 09/09/17 19:15 09/13/17 08:00 Duoneb INH 3 ml Q4HR PRN Administration Wheezing Aspirin 81 mg 09/13/17 11:00 09/13/17 12:11 Ecotrin PO 81 mg DAILY DARLENE Administration Budesonide 0.5 mg 09/09/17 20:00 09/13/17 08:00 Pulmicort INH 0.5 mg RTBID DARLENE Administration Celecoxib 200 mg 09/13/17 11:00 09/13/17 12:11 Celebrex PO 200 mg DAILY DARLENE Administration Ferrous Gluconate 324 mg 09/13/17 12:00 09/13/17 12:11 Fergon PO 324 mg DAILYWM DARLENE Administration Hydrochlorothiazide 25 mg 09/11/17 15:00 09/13/17 09:09 Hydrodiuril PO 25 mg DAILY DARLENE Administration Hydromorphone HCl 0.5 mg 09/09/17 22:25 09/13/17 15:58 Dilaudid Inj Syringe IVP 0.5 mg Q6H PRN Administration SEVERE PAIN Azithromycin 500 mg/ Sodium 250 mls @ 250 mls/hr 09/09/17 22:00 09/12/17 22: 14 Chloride IV Infused Q24H DARLENE Infusion Ceftriaxone Sodium 2 gm/ 100 mls @ 200 mls/hr 09/09/17 22:00 09/12/17 21:55 Sodium Chloride IV Infused Q24H DARLENE Infusion Acetaminophen 100 mls @ 400 mls/hr 09/09/17 21:10 09/13/17 09:45 Ofirmev IV Infused Q6HR PRN Infusion PAIN Promethazine HCl 25 mg/ Sodium 51 mls @ 100 mls/hr 09/09/17 22:22 09/13/17 10 :57 Chloride IV Infused Q6H PRN Infusion Nausea / Vomiting Potassium Chloride/Dextrose/Sod Cl 1,000 mls @ 40 mls/hr 09/12/17 14:20 09/13 11:05 D5.45ns W/20 Meq Kcl IV 40 mls/hr .Q25H DARLENE Infusion Insulin Aspart 3 - 11 unit 09/12/17 12:00 09/13/17 12:12 Novolog SUBQ 3 unit 0800,1200,1700,2100 DARLENE Administration Protocol Lisinopril 20 mg 09/11/17 15:00 09/13/17 09:10 Zestril PO 20 mg DAILY DARLENE Administration Methadone HCl 2.5 mg 09/11/17 15:00 09/13/17 14:05 PO 2.5 mg TID DARLENE Administration Metoprolol Tartrate 25 mg 09/12/17 09:00 09/13/17 09:09 Lopressor PO 25 mg BID DARLENE Administration Pantoprazole Sodium 40 mg 09/09/17 22:00 09/13/17 06:28 Protonix IVP 40 mg QDAC DARLENE Administration Promethazine HCl 25 mg 09/13/17 10:50 09/13/17 15:58 Phenergan PO 25 mg Q4H PRN Administration Nausea / Vomiting Sodium Chloride 10 ml 09/09/17 18:28 09/13/17 06:28 Normal Saline Flush 0.9% IVP 10 ml PRN PRN Administration NEEDED PER PROVIDER ORDERS Sodium Chloride 10 ml 09/10/17 01:00 09/13/17 02:07 Normal Saline Flush 0.9% IVP 10 ml 0100,0900,1700 DARLENE Administration - Lab Result Fish Bone Diagrams: 09/13/17 05:25 09/13/17 05:25 - Additional Planning My Orders: My Active Orders 09/13/17 Evaluate and Treat OT [OT] Routine Evaluate and Treat PT [PT] Routine 09/13/17 10:50 Promethazine [Phenergan] 25 mg PO Q4H PRN 09/13/17 11:00 Aspirin EC [Ecotrin] 81 mg PO DAILY Celecoxib [CeleBREX] 200 mg PO DAILY 09/13/17 12:00 Ferrous Gluconate [Fergon] 324 mg PO DAILYWM 09/13/17 21:00 diazePAM [Valium] 10 mg PO QPM PRN 09/14/17 09:00 amLODIPine [Norvasc] 10 mg PO DAILY Subjective - Subjective Patient Reports: Feeling Better Nursing Reports: No Complaints Objective Vital Signs: Vital Signs - 24 hr 09/12/17 09/12/17 09/13/17 21:04 22:20 00:04 Temperature 36.9 C Heart Rate 73 Heart Rate [ 69 Brachial] Heart Rate [ Sitting] Heart Rate [ Supine] Respiratory 18 16 Rate Blood Pressure 133/67 H Blood Pressure 126/58 L [Left Brachial artery] Blood Pressure [Sitting] Blood Pressure [Supine] O2 Saturation 93 09/13/17 09/13/17 09/13/17 08:00 09:05 09:09 Temperature 36.9 C Heart Rate 102 H Heart Rate [ 96 Brachial] Heart Rate [ Sitting] Heart Rate [ Supine] Respiratory 16 14 Rate Blood Pressure 147/61 H Blood Pressure 147/61 H [Left Brachial artery] Blood Pressure [Sitting] Blood Pressure [Supine] O2 Saturation 100 09/13/17 09/13/17 09/13/17 11:50 11:52 15:00 Temperature 36.2 C L Heart Rate 81 Heart Rate [ 78 Brachial] Heart Rate [ 81 Sitting] Heart Rate [ 78 Supine] Respiratory 16 16 Rate Blood Pressure Blood Pressure 124/61 [Left Brachial artery] Blood Pressure 145/69 H [Sitting] Blood Pressure 124/61 [Supine] O2 Saturation 93 09/13/17 15:44 Temperature 36.8 C Heart Rate Heart Rate [ 98 Brachial] Heart Rate [ Sitting] Heart Rate [ Supine] Respiratory 16 Rate Blood Pressure Blood Pressure 148/65 H [Left Brachial artery] Blood Pressure [Sitting] Blood Pressure [Supine] O2 Saturation 93 Oxygen O2 Source trach mask I&O (Last 24 Hrs): Intake and Output Totals x24h 02/26/18 02/27/18 02/28/18 23:59 23:59 23:59 Intake Total 2744.000 3239.000 1334.000 Output Total 1950 3300 750 Balance 794.000 -61.000 584.000 General: Alert, Oriented x3 HEENT: Mucous membr. moist/pink, Other (Has trach, breathing R.A.) Neck: Supple Neuro: Non Focal Cardiovascular: No murmurs Respiratory: Breath sounds nml Abdomen: Soft Extremities: No edema - Results Results: Laboratory Results WBC 4.6 x10^3/uL (4.8-10.8) L 09/13/17 05:25 RBC 4.12 10^6/uL (4.20-5.40) L 09/13/17 05:25 Hgb 11.9 g/dL (12.0-16.0) L 09/13/17 05:25 Hct 36.4 % (37.0-47.0) L 09/13/17 05:25 MCV 88.3 fL (81.0-99.0) 09/13/17 05:25 MCH 28.8 pg (27.0-31.0) 09/13/17 05:25 MCHC 32.6 g/dL (32.0-36.0) 09/13/17 05:25 RDW 14.2 % (12.0-15.0) 09/13/17 05:25 Plt Count 322 10^3/uL (130-450) 09/13/17 05:25 MPV 7.7 fL (7.9-10.8) L 09/13/17 05:25 Neut # 16.0 10^3/uL (1.5-6.6) H 09/09/17 16:00 Lymph # 0.4 10^3/uL (1.5-3.5) L 09/09/17 16:00 Ward # 1.3 10^3/uL (0.0-1.0) H 09/09/17 16:00 Eos # 0.0 10^3/uL (0.0-0.7) 09/09/17 16:00 Baso # 0.2 10^3/uL (0.0-0.1) H 09/09/17 16:00 Absolute Nucleated RBC 0.00 x10^3/uL 09/09/17 16:00 Nucleated RBC % 0.0 /100WBC 09/09/17 16:00 Sodium 139 mmol/L (135-145) 09/13/17 05:25 Potassium 3.4 mmol/L (3.5-5.0) L 09/13/17 05:25 Chloride 102 mmol/L (101-111) 09/13/17 05:25 Carbon Dioxide 28 mmol/L (21-32) 09/13/17 05:25 Anion Gap 9.0 (6-13) 09/13/17 05:25 BUN 7 mg/dL (6-20) 09/13/17 05:25 Creatinine 0.6 mg/dL (0.4-1.0) 09/13/17 05:25 Estimated GFR (MDRD) 99 (>89) 09/13/17 05:25 Glucose 125 mg/dL (70-100) H 09/13/17 05:25 POC Whole Bld Glucose 154 mg/dL (70 - 100) H 09/13/17 11:20 Glycated Hemoglobin 6.6 % (4.6-6.2) H 09/11/17 05:47 Estim Average Glucose 143 (70-100) H 09/11/17 05:47 Calcium 8.5 mg/dL (8.5-10.3) 09/13/17 05:25 Magnesium 1.7 mg/dL (1.7-2.8) 09/09/17 16:00 Total Bilirubin 1.4 mg/dL (0.2-1.0) H 09/09/17 16:00 AST 21 IU/L (10-42) 09/09/17 16:00 ALT 14 IU/L (10-60) 09/09/17 16:00 Alkaline Phosphatase 61 IU/L (42-121) 09/09/17 16:00 B-Natriuretic Peptide 97 pg/mL (5-100) 09/09/17 16:00 Total Protein 7.8 g/dL (6.7-8.2) 09/09/17 16:00 Albumin 3.7 g/dL (3.2-5.5) 09/09/17 16:00 Globulin 4.1 g/dL (2.1-4.2) 09/09/17 16:00 Albumin/Globulin Ratio 0.9 (1.0-2.2) L 09/09/17 16:00 Lipase 10 U/L (22-51) L 09/09/17 16:00
[2017-09-13] MEDS ORDERED: diazePAM 5 MG TABLET PO PRN (21:00)
[2017-09-13] MEDS: AZITHROMYCIN INJ 500 MG in SODIUM CHLORIDE 0.9% 250 ML IV SCH (21:16)
[2017-09-13] MEDS: cefTRIAXone 2 GM in SODIUM CHLORIDE 0.9% MINIBAG 100 ML IV SCH (22:54)
[2017-09-14] MEDS: SODIUM CHLORIDE FLUSH 0.9% 10 ML SYRINGE IVP SCH ×2 (00:15→09:05)
[2017-09-14] MEDS: HYDROmorphone 1 MG/ML SYRINGE IVP PRN ×2 (04:48→11:20)
[2017-09-14] MEDS: PROMETHAZINE 25 MG TABLET PO PRN ×2 (04:48→11:20)
[2017-09-14 05:51] LABS: HGB - HEMOGLOBIN 11.8 g/dL (12.0-16.0); MEAN CORPUSCULAR HEMOGLOBIN 28.5 pg (27.0-31.0); MEAN CORPUSCULAR HGB CONC 32.7 g/dL (32.0-36.0); MEAN CORPUSCULAR VOLUME 87.2 fL (81.0-99.0); MEAN PLATELET VOLUME 7.4 fL (7.9-10.8); RED BLOOD COUNT 4.14 10^6/uL (4.20-5.40); RED CELL DISTRIBUTION WIDTH 13.8 % (12.0-15.0); WHITE BLOOD COUNT 4.3 x10^3/uL (4.8-10.8)
[2017-09-14 05:56] LABS: CALCIUM 8.9 mg/dL (8.5-10.3); CREATININE 0.5 mg/dL (0.4-1.0)
[2017-09-14] MEDS: D5.45NS W/20 MEQ KCL 1,000 ML IV SCH (06:38)
[2017-09-14] MEDS: METHADONE 5 MG TABLET PO SCH ×2 (06:38→13:33)
[2017-09-14] MEDS: PANTOPRAZOLE 40 MG VIAL IVP SCH (06:38)
[2017-09-14] MEDS: SODIUM CHLORIDE FLUSH 0.9% 10 ML SYRINGE IVP PRN (06:38)
[2017-09-14] MEDS: INSULIN ASPART 300 UNIT/3 ML PEN SUBQ SCH ×2 (07:49→12:15)
[2017-09-14] MEDS: IPRATROPIUM/ALBUTEROL 3 ML NEB INH PRN (08:43)
[2017-09-14] MEDS: BUDESONIDE 0.5 MG/2 ML NEB INH SCH (08:44)
[2017-09-14] MEDS ORDERED: amLODIPine 5 MG TABLET PO SCH (09:00)
[2017-09-14] MEDS: FERROUS GLUCONATE 324 MG TABLET PO SCH (09:03)
[2017-09-14] MEDS: METOPROLOL TARTRATE 25 MG TABLET PO SCH (09:04)
[2017-09-14] MEDS: CELECOXIB 100 MG CAPSULE PO SCH (09:05)
[2017-09-14] MEDS: ASPIRIN EC 81 MG TABLET PO SCH (09:05)
[2017-09-14] MEDS: LISINOPRIL 20 MG TABLET PO SCH (09:05)
[2017-09-14] MEDS: hydroCHLOROthiazide 25 MG TABLET PO SCH (09:05)
[2017-09-14 11:46] VITALS: BP 122/58
--- NOTE | 2017-09-14 12:14 | Discharge Plan ---
Discharge Plan Disposition: Home, Self Care Condition: Stable Prescriptions: Ipratropium/Albuterol [Duoneb] 3 ml INH Q4HR PRN #2 neb PRN Reason: Wheezing Budesonide/Formoterol Fumarate [Symbicort 80-4.5 Mcg Inhaler] 10.2 gm IH BID #2 hfa.aer.ad Moxifloxacin [Avelox] 400 mg PO DAILY #7 tablet Saccharomyces Boulardii [Florastor] 250 mg PO BID 14 Days #28 capsule Diet: Regular Activity Restrictions: Activity as Tolerated Shower Restrictions: No Driving Restrictions: Yes Assistance Devices: Walker Weight Bearing: Full Weight Additional Instructions or Follow Up instructions: Resume all your pre-hospital medications. Take the antibiotic Avalox for 7 days (til the the bottle is done) and take the Florastor for 2 weeks. Home oxygen and nebulizers have been ordered for you. Use the Symbacort twice a day. Use the Duoneb NEEDED twice a day . Home Health Physical Therapy and Occupational Therapy have been ordered for you. It is advised that you get a Primary Care Provider, who should then refer you to an ENT and/or Outside Food Server for management of the trach. Follow-Up Care: Home Health - PT, Home Health - OT No Smoking: If you smoke, Please STOP! Call for help. Follow-up with: Sherri Hodge ARNP [Primary Care Provider] -
--- NOTE | 2017-09-22 19:45 | DISCHARGE SUMMARY ---
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 This is a "speaking tracheostomy" but is currently "broken". She also has a history of depression and anxiety, hypertension, GERD, diabetes on oral agents, and COPD. The patient had been estranged from her daughter for many years and recently the daughter found her, traveled to see her in [place] and found her living in a mobile home that was filled with black mold. The daughter brought her back to [facility]. The patient has been having difficulty breathing and presented to the emergency room and found to have a pneumonia. HOSPITAL COURSE AND DISCHARGE DIAGNOSES 1. Community-acquired pneumonia. The chest x-ray showed a small left pleural effusion, bronchial thickening and multilobular consolidation. The patient was placed on empiric IV ceftriaxone and IV azithromycin, and at the time of discharge, she was transferred to an oral antibiotic. The sputum culture had no growth. Her respiratory status improved quickly with management of her chronic obstructive pulmonary disease (see below). 2. Acute exacerbation of chronic obstructive pulmonary disease. The patient was placed on bronchodilators, steroids and supplemental oxygen. The nebulizers will continue as new prescriptions of Symbicort and DuoNeb at discharge. 3. Tracheostomy dependent. The patient required a trach oxygen collar, which was continued at the time of discharge with a new oxygen order. The patient was hypoxic at rest with room air oxygen saturation of 86%. At rest with oxygen at 4 liters via trach collar, her saturations were 86%. On 5 liters per minute oxygen, her saturations were 87%, and finally on 8 liters per minute oxygen, the saturation improved to 90%. With exertion at 8 liters per minute oxygen, her saturations were 90%. I ordered home oxygen at 8 liters per minute at rest and with exertion via trach collar to treat her COPD and hypoxia. I also ordered a home nebulizer machine for administration of bronchodilators to help treat her COPD. 4. Hypertension. The patient's medications of hydralazine, metoprolol, amlodipine and Lasix were continued, and she had good blood pressure control. 5. Diabetes. The patient was continued on her metformin, along with a sliding scale insulin for glucose coverage, and a diabetic diet was ordered. 6. Anxiety. The patient's medications from home were continued. 7. Chronic pain. The patient had good control with use of her home medications. ALLERGIES 1. LEVAQUIN. 2. MEPERIDINE. 3. SILVER NITRATE. MEDICATIONS AT THE TIME OF DISCHARGE 1. Sodium chloride inhalation vials of 3 mL for trach management. 2. DuoNeb 3 mL q.4h. inhalation p.r.n. wheezing. 3. Hydralazine 50 mg p.o. every 6 hours. 4. ProAir HFA inhaler 2 puffs q.i.d. p.r.n. 5. Amlodipine 10 mg p.o. daily. 6. Baby aspirin p.o. daily. 7. A glucometer was ordered, starting since this admission. 8. Symbicort 10.2 gram inhaler b.i.d. 9. Celecoxib 200 mg p.o. daily. 10. Valium 10 mg p.o. q.p.m. 11. Pepcid 40 mg p.o. daily. 12. Iron gluconate 324 mg p.o. daily. 13. Lasix 20 mg p.o. b.i.d. 14. Wiggins 10 mg/325 mg 2 tabs p.o. every 4 hours p.r.n. pain. 15. Vistaril 25 mg q.i.d. p.r.n. itching. 16. New lancets and glucose strips were ordered. 17. Xylocaine viscous 5 mL every 4 hours for her oral care. 18. Metformin 1000 mg p.o. b.i.d. 19. Methadone 5 mg p.o. every 8 hours p.r.n. pain; 12 tablets only were prescribed. 20. Lopressor 100 mg p.o. b.i.d. 21. Avelox 400 mg p.o. daily for an additional 7 days. 22. Nystatin oral suspension p.o. q.i.d. for oral care. 23. Omeprazole 40 mg p.o. daily. 24. Phenergan 25 mg p.o. every 4 hours p.r.n. 25. Florastor 250 mg p.o. b.i.d. for a 14-day course. CONDITION AT DISCHARGE: Stable. PHYSICAL EXAMINATION AT DISCHARGE VITAL SIGNS: Blood pressure 122/58, pulse of 78, in sinus rhythm, afebrile, saturation 96% using a trach mask at 12 liters per minute. HEENT: No vocal capacity. Oral mucosa was moist. NECK: Asymmetric trachea displacement and extensive prior neck surgery and a trach was in place that had a crack, confirmed per the emergency room. CHEST: Had good air movement diffusely with no wheezing or rales. HEART: Sounds normal. No audible murmur. ABDOMEN: Soft, positive bowel sounds, nontender. EXTREMITIES: No clubbing, cyanosis or edema. NEUROLOGIC: Grossly intact. LABORATORY DATA AND IMAGING: Reviewed and summarized above. FOLLOWUP: The patient will need a new PCP, which will be arranged by her daughter. The patient will also need either an ENT or [employer]ing Machine Adjuster for management of the trach, supplemental oxygen, and to replace the broken trach. Time required to complete this entire discharge, including chart review, prescription of new medications, and dictation: 60 minutes. TD: 09/22/2017 19:44 DIOGENES
== END 2017-09-14 14:30 | disposition home or self-care (01) | DRG 190 ==
LOC: ED 14:37 → MS2 18:28
PROVIDERS: ADMIT Hospitalist; ATTEND Internal Medicine
DX: J44.0 Chronic obstructive pulmonary disease with (acute) lower respiratory infection (principal); J18.9 Pneumonia, unspecified organism; J95.03 Malfunction of tracheostomy stoma; J44.1 Chronic obstructive pulmonary disease with (acute) exacerbation; E11.9 Type 2 diabetes mellitus without complications; F41.9 Anxiety disorder, unspecified; E87.6 Hypokalemia; I10 Essential (primary) hypertension; I25.10 Atherosclerotic heart disease of native coronary artery without angina pectoris; G89.29 Other chronic pain; R68.84 Jaw pain; M25.512 Pain in left shoulder; M25.511 Pain in right shoulder; M25.552 Pain in left hip; M25.551 Pain in right hip; M54.9 Dorsalgia, unspecified; K21.9 Gastro-esophageal reflux disease without esophagitis; F32.9 Major depressive disorder, single episode, unspecified; Z79.84 Long term (current) use of oral hypoglycemic drugs; Z79.51 Long term (current) use of inhaled steroids; Z79.891 Long term (current) use of opiate analgesic; Z85.20 Personal history of malignant neoplasm of unspecified respiratory organ; Z87.01 Personal history of pneumonia (recurrent); Z79.82 Long term (current) use of aspirin; R09.02 Hypoxemia
CPT/HCPCS: 36415; 71045; 71046; 80048; 80053; 83036; 83690; 83735; 83880; 85025; 87070; 87205; 93005; 93306; 94640; 94644; 94645; 94761; 96365; 96367; 96375; 99284; 99285

== ENCOUNTER 2017-10-05 16:10 | Outpatient (CLI) | payer MEDICARE ==
[2017-10-05] MEDS ORDERED: IOPAMIDOL-300 100 ML VIAL ONE (16:21)
[2017-10-05] MEDS ORDERED: IOPAMIDOL-300 100 ML VIAL IVP ONE (17:28)
--- NOTE | 2017-10-06 11:39 | CT Report ---
CT OF NECK WITH CONTRAST: 10/05/2017 CLINICAL INDICATION: Laryngeal cancer. TECHNIQUE: Axial CT images of the neck were obtained with 80 mL Isovue [address] is available for comparison. FINDINGS: Limited evaluation of the orbits and paranasal sinuses are unremarkable. The patient is status post neck dissection and tracheostomy. The thyroid is heterogeneous and asymmetric. The salivary glands appear unremarkable. No cervical lymphadenopathy is appreciated. Limited evaluation of the lung the apices is unremarkable. Osseous structures demonstrate degenerative changes. IMPRESSION: POSTOPERATIVE CHANGES IN THE NECK. NO ADENOPATHY. In accordance with CT protocol optimization, one or more of the following dose reduction techniques were utilized for this exam: automated exposure control, adjustment of mA and/or KV based on patient size, or use of iterative reconstructive technique. TD: 10/06/2017 11:38
== END 2017-10-05 16:11 | disposition home or self-care (01) ==
LOC: DI 16:10
PROVIDERS: ATTEND Otolaryngology
DX: C32.9 Malignant neoplasm of larynx, unspecified (principal)
CPT/HCPCS: 70491; Q9967

== ENCOUNTER 2018-08-31 11:11 | Outpatient (CLI) | payer MEDICARE, MEDICAID ==
[2018-08-31 18:23] LABS: BASOPHILS % (AUTO) 0.8 %; EOSINOPHILS # (AUTO) 0.3 10^3/uL (0.0-0.7); EOSINOPHILS % (AUTO) 6.1 %; HGB - HEMOGLOBIN 13.3 g/dL (12.0-16.0); LYMPHOCYTES # (AUTO) 0.9 10^3/uL (1.5-3.5); LYMPHOCYTES % (AUTO) 16.1 %; MEAN CORPUSCULAR HEMOGLOBIN 29.2 pg (27.0-31.0); MEAN CORPUSCULAR HGB CONC 32.2 g/dL (32.0-36.0); MEAN CORPUSCULAR VOLUME 90.5 fL (81.0-99.0); MEAN PLATELET VOLUME 8.4 fL (7.9-10.8); MONOCYTES # (AUTO) 0.5 10^3/uL (0.0-1.0); MONOCYTES % (AUTO) 8.9 %; NEUTROPHILS # (AUTO) 3.8 10^3/uL (1.5-6.6); NEUTROPHILS % (AUTO) 68.1 %; PLT - PLATELET COUNT 270 10^3/uL (130-450); RED BLOOD COUNT 4.57 10^6/uL (4.20-5.40); RED CELL DISTRIBUTION WIDTH 14.7 % (12.0-15.0); WHITE BLOOD COUNT 5.6 x10^3/uL (4.8-10.8)
[2018-08-31 20:03] LABS: ALBUMIN 4.1 g/dL (3.2-5.5); ALKALINE PHOSPHATASE 53 IU/L (42-121); ALT ALANINE AMINOTRANSFERASE 15 IU/L (10-60); AST ASPARTATE AMINOTRANSFERASE 21 IU/L (10-42); BILIRUBIN,TOTAL < 0.2 mg/dL (0.2-1.0); BUN - BLOOD UREA NITROGEN 15 mg/dL (6-20); CALCIUM 9.4 mg/dL (8.5-10.3); CARBON DIOXIDE - CO2 30 mmol/L (21-32); CHLORIDE 99 mmol/L (101-111); CHOL/HDL RATIO 5.4 (<4.4); CHOLESTEROL 241 mg/dL; CREATININE 0.7 mg/dL (0.4-1.0); GFR - MDRD 83 (>89); GLUCOSE 160 mg/dL (70-100); HDL CHOLESTEROL 45 mg/dL; LDL CHOLESTEROL,CALCULATED 156 mg/dL; LDL/HDL RATIO 3.5 (<4.4); SODIUM 138 mmol/L (135-145); TOTAL PROTEIN 8.1 g/dL (6.7-8.2); VLDL CHOLESTEROL 40 mg/dL
[2018-08-31 20:46] LABS: HB2 TOTAL 14.2 g/dL; HEMOGLOBIN A1C 0.69 g/dL; HEMOGLOBIN A1C % 6.6 % (4.6-6.2)
== END 2018-08-31 11:12 | disposition home or self-care (01) ==
LOC: LAB.F 11:11
PROVIDERS: ATTEND Nurse Practitioner Family
DX: I10 Essential (primary) hypertension (principal); E11.65 Type 2 diabetes mellitus with hyperglycemia; E78.5 Hyperlipidemia, unspecified; E11.9 Type 2 diabetes mellitus without complications
CPT/HCPCS: 36415; 80053; 80061; 83036; 83721; 84443; 85025

== ENCOUNTER 2018-12-13 08:00 | Outpatient (CLI) | payer MEDICAID, MEDICARE ==
[2018-12-13 10:56] LABS: MUDS CUTOFF CONCENTRATIONS CUTOFF CONC BELOW:
[2018-12-13 11:15] LABS: AMPHETAMINE SCREEN,URINE NEGATIVE (NEGATIVE); BENZODIAZEPINES SCREEN, URINE NEGATIVE (NEGATIVE); COCAINE SCREEN URINE NEGATIVE (NEGATIVE); METHADONE SCREEN, URINE NEGATIVE (NEGATIVE); METHAMPHETAMINES SCREEN, URINE NEGATIVE (NEGATIVE); OPIATE SCREEN, URINE POSITIVE (NEGATIVE); OXYCODONE SCREEN, URINE NEGATIVE (NEGATIVE); PROPOXYPHENE SCREEN, URINE NEGATIVE (NEGATIVE); TRICYCLIC ANTIDEPRESSANT,URINE NEGATIVE (NEGATIVE)
== END 2018-12-13 23:59 | disposition home or self-care (01) ==
LOC: LAB.R 08:00
PROVIDERS: ATTEND Nurse Practitioner Family
DX: G89.29 Other chronic pain (principal)
CPT/HCPCS: 80306

== ENCOUNTER 2021-06-08 12:58 | Outpatient (CLI) | payer MEDICARE ==
[2021-06-08 20:30] LABS: ESTIMATED AVERAGE GLUCOSE 315 mg/dL (70-100); HEMOGLOBIN A1c% 12.6 % (4.27-6.07)
== END 2021-06-08 12:59 | disposition home or self-care (01) ==
LOC: LAB.S 12:58
PROVIDERS: ATTEND Nurse Practitioner Family
DX: E11.9 Type 2 diabetes mellitus without complications (principal)
CPT/HCPCS: 36415; 83036